=== PATIENT | female | born 1980 | race Hispanic/Latino ===

== ENCOUNTER 2017-01-24 12:55 | Emergency (ER) | payer OTHER ==
[2017-01-24 13:13] VITALS: BP 146/95
[2017-01-24] MEDS ORDERED: DILAUDID IM ONE (15:09)
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
[2017-01-24] MEDS ORDERED: MOTRIN PO ONE (16:19)
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
== END 2017-01-24 17:10 | disposition home or self-care (01) ==
LOC: ED 12:55
DX: S76.912A Strain of unspecified muscles, fascia and tendons at thigh level, left thigh, initial encounter (principal); S76.911A Strain of unspecified muscles, fascia and tendons at thigh level, right thigh, initial encounter; S39.012A Strain of muscle, fascia and tendon of lower back, initial encounter; S13.4XXA Sprain of ligaments of cervical spine, initial encounter; R51 Headache; E03.9 Hypothyroidism, unspecified; F17.210 Nicotine dependence, cigarettes, uncomplicated; Z88.2 Allergy status to sulfonamides; V89.2XXA Person injured in unspecified motor-vehicle accident, traffic, initial encounter; Y93.89 Activity, other specified; Y92.89 Other specified places as the place of occurrence of the external cause; Y99.8 Other external cause status
CPT/HCPCS: 70450; 72100; 73030; 73090; 73562; 96372; 99284; J1170